=== PATIENT | male | born 1980 | race Caucasian/White ===

== ENCOUNTER 2024-05-31 08:51 | Emergency (ER) | payer MEDICAID, OTHER ==
[~2024-05-31] VITALS: Ht 175.3 cm; Wt 106.2 kg
[2024-05-31 09:33] VITALS: BP 136/76; PULSE 72; RESP 18; TEMP 98.2; O2SAT 98
[2024-05-31] MEDS ORDERED: TRAM-626 PO (09:38)
== END 2024-05-31 09:48 | disposition home or self-care (01) ==
LOC: ER 08:51
DX: M75.92 Shoulder lesion, unspecified, left shoulder (principal)
CPT/HCPCS: 73030

== ENCOUNTER 2024-12-02 22:40 | Emergency (ER) | payer MEDICAID, OTHER ==
[~2024-12-02] VITALS: Ht 175.3 cm; Wt 107.1 kg
[2024-12-02 22:40] VITALS: BP 132/88; PULSE 69; RESP 16; TEMP 96.3; O2SAT 98
[~2024-12-02 22:40] MED LIST: TRAM-626 PO
== END 2024-12-03 02:34 | disposition left against medical advice (07) ==
LOC: ER 22:42
DX: S09.90XA Unspecified injury of head, initial encounter (principal); Z53.21 Procedure and treatment not carried out due to patient leaving prior to being seen by health care provider; V89.2XXA Person injured in unspecified motor-vehicle accident, traffic, initial encounter; Y93.89 Activity, other specified; Y92.89 Other specified places as the place of occurrence of the external cause; Y99.8 Other external cause status